=== PATIENT | male | born 1965 | race Caucasian/White ===

== ENCOUNTER 2016-12-18 06:24 | Day surgery (SDC) | payer OTHER ==
[~2016-12-18] VITALS: Ht 163.8 cm; Wt 81.8 kg
[~2016-12-18 06:24] MED LIST: ALBUTEROL SULFATE 2.5 MG/0.5 ML NEB SOLUTION NEB ONE; BECL8.7A5 IH; BENZOCAINE 20% 50 MCG/SPRAY 57 GM TP ONE; LIDOCAINE HCL 2% 30 ML JELLY TP ONE; LIDOCAINE HCL 4% 50 ML SOLUTION TP ONE
[2016-12-18] MEDS ORDERED: SODIUM CHLORIDE 0.9% 1,000 ML IV ONE ×2 (06:30→06:38)
[2016-12-18] MEDS ORDERED: MIDAZOLAM HCL 2 MG/2 ML VIAL ONE (07:18)
[2016-12-18] MEDS ORDERED: FentaNYL CITRATE-PF 100 MCG/2 ML VIAL ONE (07:18)
[2016-12-18] MEDS ORDERED: MethylPREDNISolone SOD SUCC 125 MG/2 ML VIAL IVP ONE (09:00)
[2016-12-18] MEDS ORDERED: OXYGEN THERAPY IH SCH (20:00)
== END 2016-12-18 10:10 | disposition home or self-care (01) ==
LOC: SURGERY 06:24
PROVIDERS: ATTEND Internal Medicine Critical Care Medicine
DX: J38.4 Edema of larynx (principal); Z98.890 Other specified postprocedural states; Z86.69 Personal history of other diseases of the nervous system and sense organs
CPT/HCPCS: 31623; 31624; 71010; 87015 ×2; 87070; 87101; 87147; 87205; 87220; 88108; 88312; J2250; J2930; J3010; J7030

== ENCOUNTER 2017-12-17 06:43 | Day surgery (SDC) | payer OTHER ==
[~2017-12-17] VITALS: Ht 162.6 cm; Wt 81.8 kg
[~2017-12-17 06:43] MED LIST changes: -ALBUTEROL SULFATE 2.5 MG/0.5 ML NEB SOLUTION NEB ONE; -BENZOCAINE 20% 50 MCG/SPRAY 57 GM TP ONE; -LIDOCAINE HCL 2% 30 ML JELLY TP ONE; -LIDOCAINE HCL 4% 50 ML SOLUTION TP ONE; +SODIUM CHLORIDE 0.9% 1,000 ML IV ONE
[2017-12-17] MEDS ORDERED: BENZOCAINE 20% 50 MCG/SPRAY 57 GM TP ONE (06:44)
[2017-12-17] MEDS ORDERED: LIDOCAINE HCL 2% 30 ML JELLY TP ONE (06:44)
[2017-12-17] MEDS ORDERED: LIDOCAINE HCL 4% 50 ML SOLUTION TP ONE (06:44)
[2017-12-17] MEDS ORDERED: SODIUM CHLORIDE 0.9% 1,000 ML IV ONE (06:54)
[2017-12-17] MEDS ORDERED: CIPR-278 PO (07:28)
[2017-12-17] MEDS ORDERED: MONT10TA21 PO (07:28)
[2017-12-17] MEDS ORDERED: PRED5 PO (07:28)
[2017-12-17] MEDS ORDERED: FentaNYL CITRATE-PF 100 MCG/2 ML VIAL ONE (08:12)
[2017-12-17] MEDS ORDERED: MIDAZOLAM HCL 2 MG/2 ML VIAL ONE (08:12)
[2017-12-17] MEDS ORDERED: MethylPREDNISolone SOD SUCC 125 MG/2 ML VIAL IVP ONE (09:15)
[2017-12-17] MEDS ORDERED: MethylPREDNISolone SOD SUCC 125 MG/2 ML VIAL ONE (09:55)
[2017-12-17] MEDS ORDERED: OXYGEN THERAPY IH SCH (20:00)
== END 2017-12-17 10:40 | disposition home or self-care (01) ==
LOC: SURGERY 06:43
PROVIDERS: ATTEND Internal Medicine Critical Care Medicine
DX: J38.4 Edema of larynx (principal); B37.0 Candidal stomatitis; J84.111 Idiopathic interstitial pneumonia, not otherwise specified; Z79.2 Long term (current) use of antibiotics; Z86.69 Personal history of other diseases of the nervous system and sense organs; Z87.891 Personal history of nicotine dependence; Z98.890 Other specified postprocedural states; Z79.899 Other long term (current) drug therapy
CPT/HCPCS: 31623; 31624; 71045; 87015; 87070; 87205; 87206; 87220; 88108; 88312; J2250; J2930; J3010; J7030

== ENCOUNTER 2018-10-14 06:08 | Day surgery (SDC) | payer OTHER ==
[~2018-10-14] VITALS: Ht 162.6 cm; Wt 78.2 kg
[~2018-10-14 06:08] MED LIST changes: +CIPR-278 PO; +MONT10TA21 PO; +PRED5 PO; -SODIUM CHLORIDE 0.9% 1,000 ML IV ONE
[2018-10-14] MEDS ORDERED: LIDOCAINE 4% 50 ML SOLUTION TP ONE (06:09)
[2018-10-14] MEDS ORDERED: LIDOCAINE 2% 30 ML JELLY TP ONE (06:09)
[2018-10-14] MEDS ORDERED: ALBUTEROL SULFATE 2.5 MG/0.5 ML NEB SOLUTION NEB ONE (06:09)
[2018-10-14] MEDS ORDERED: BENZOCAINE 20% 50 MCG/SPRAY 57 GM TP ONE (06:09)
[2018-10-14] MEDS ORDERED: SODIUM CHLORIDE 0.9% 1,000 ML IV ONE ×2 (06:13→07:00)
[2018-10-14] MEDS ORDERED: FentaNYL CITRATE-PF 100 MCG/2 ML VIAL ONE (08:14)
[2018-10-14] MEDS ORDERED: MIDAZOLAM HCL 2 MG/2 ML VIAL ONE (08:14)
[2018-10-14] MEDS ORDERED: MethylPREDNISolone SOD SUCC 125 MG/2 ML VIAL IVP ONE (08:45)
[2018-10-14] MEDS ORDERED: OXYGEN THERAPY IH SCH (20:00)
== END 2018-10-14 10:20 | disposition home or self-care (01) ==
LOC: SURGERY 06:08
PROVIDERS: ATTEND Internal Medicine Critical Care Medicine
DX: J38.4 Edema of larynx (principal); B37.0 Candidal stomatitis
CPT/HCPCS: 31623; 31624; 71045; 87015; 87070; 87101; 87205; 87206; 87220; 88108; 88312; J2250; J2930; J3010; J7030

== ENCOUNTER 2020-07-07 06:11 | Day surgery (SDC) | payer MEDICARE, OTHER ==
[2020-07-05 09:12] LABS: COVID AG,FIA SOURCE NASOPHARYNGEAL
[~2020-07-07] VITALS: Ht 165.1 cm; Wt 80.5 kg
[~2020-07-07 06:11] MED LIST changes: +MONT-35 PO; -MONT10TA21 PO; +PRED-409 PO; -PRED5 PO
[2020-07-07] MEDS ORDERED: SODIUM CHLORIDE 0.9% 1,000 ML ONE (06:53)
[2020-07-07] MEDS ORDERED: SODIUM CHLORIDE 0.9% 1,000 ML IV ONE (07:00)
[2020-07-07] MEDS ORDERED: FentaNYL CITRATE PF 100 MCG/2 ML VIAL ONE (08:02)
[2020-07-07] MEDS ORDERED: MIDAZOLAM HCL 2 MG/2 ML VIAL ONE (08:02)
[2020-07-07] MEDS ORDERED: MethylPREDNISolone SOD SUCC 125 MG/2 ML VIAL IVP ONE (09:00)
[2020-07-07] MEDS ORDERED: MethylPREDNISolone SOD SUCC 125 MG/2 ML VIAL ONE (09:23)
[2020-07-07] MEDS ORDERED: OXYGEN THERAPY IH SCH (20:00)
== END 2020-07-07 11:00 | disposition home or self-care (01) ==
LOC: SURGERY 06:11
PROVIDERS: ATTEND Internal Medicine Critical Care Medicine
DX: J38.4 Edema of larynx (principal); B37.0 Candidal stomatitis
CPT/HCPCS: 31623; 31624; 71045; 87070; 87101; 87206; 87220; 87426; 88184; 88185; C9803; J2250; J2930; J3010; J7030; 87015; 88108; 88312